=== PATIENT | female | born 1965 | race Caucasian/White ===

== ENCOUNTER → 2023-08-21 08:48 | Outpatient (REF) | payer BC, SELFPAY | LOC: WDC 08:48 | PROVIDERS: ATTENDING PHYSICIAN Obstetrics & Gynecology Gynecology; FAMILY PHYSICIAN Family Medicine | DX: Z12.31 Encounter for screening mammogram for malignant neoplasm of breast (principal) | CPT/HCPCS: 77063; 77067 ==

== ENCOUNTER 2024-02-13 14:33 | Emergency (ER) | payer BC, SELFPAY ==
--- NOTE | 2024-02-13 14:41 | ED.GENMED ---
ED Provider Triage
<Rose Mitchell PA-C - Last Filed: 02/13/24 14:45>
-
Patient seen by provider in Triage?: Seen in Triage
Attestation: A medical screening examination has been initiated by a qualified medical provider. Based on the assessment performed at this time, it has been determined that an emergent medical condition may exist and the patient has been informed
that further medical evaluation and possible additional diagnostic testing may be needed.
HPI: 58yoF here with chest discomfort and palpitations. Started 1 week ago and woke her up from sleep. Reports tightness in center of chest which radiated to jaw. Jaw discomfort subsided but continues to have chest fluttering. Seen by PCP today and
EKG was 'a little weird' so she was sent to the ED.
GENERAL: Alert , in no apparent distress
EYE: No visual abnormalities.
NECK: Trachea midline
ENT: No visible abnormalities.
LUNGS: No acute respiratory distress
NEUROLOGICAL: Alert and oriented
SKIN: Skin intact. No visible changes.
MUSCULOSKELETAL: Moving extremities normally
PSYCH: Normal and appropriate interaction.
This is a medical evaluation conducted in person to initiate diagnostic evaluation and provide initial therapeutics. Please see further documentation by the treating clinician.
Cardiac labs, EKG, and CXR ordered.
History of Present Illness
<Rose Mitchell PA-C - Last Filed: 02/13/24 14:45>
General
Chief Complaint: Chest Pain
Time Seen by Provider: 02/13/24 16:57
<Jaison Morataya DO - Last Filed: 02/13/24 17:34>
History of Present Illness
History of Present Illness:
TIME OF INITIAL ENCOUNTER: 5 PM
HPI: About a week ago, the patient woke up with chest discomfort. This been ongoing for the past week but is overall improving. She has no exertional symptoms. This is also associated with a heart fluttering sensation. She went to see her
primary care doctor who thought the EKG was a little bit changed so she was sent here for further evaluation. She saw Dr. Summres about 20 years ago.
EXAM:
GENERAL: Well appearing in no distress
HEENT: Moist oral mucosa
CARDIOVASCULAR: No murmurs, normal heart rate, regular rhythm, No chest wall tenderness
PULMONARY: No respiratory distress, breath sounds are clear and equal
ABDOMEN: Soft with no peritoneal signs, no tenderness
NEUROLOGIC: Excellent strength all extremities, no coordination deficits
PSYCHIATRIC: Appropriate mental status, normal insight and judgement
EXTREMITIES: Nontender, no edema, moves all extremities equally
SKIN: No rash, no lesions
NUMBER AND COMPLEXITY OF PROBLEMS ADDRESSED AT THE ENCOUNTER
� Chronic conditions affecting care: No significant past medical history, has had a ureteral stone in the past
� Acute Exacerbation and/or Progression of Chronic Illness: This is an acute problem
� Differential Diagnosis includes: Stress/anxiety, chest wall pain, ACS less likely
AMOUNT AND/OR COMPLEXITY OF DATA TO BE REVIEWED AND ANALYZED
� I performed an independent evaluation of and my interpretation is:
EKG: Sinus 78, left axis deviation, nonspecific ST abnormality with overall improved T wave abnormality on EKG from 2019
CT:
X-rays: Chest x-ray unremarkable other than tortuosity of aorta
Laboratory Studies: CBC, chemistries, and troponin unremarkable
Other:
� Review of other/old records: I reviewed records, the patient had a colonoscopy in July 2022
� Clinical information was obtained by an independent historian: I spoke to family at bedside
� Prescriptions/Medications Considered but not given:
� Further testing considered but not performed: Consider repeat troponin however the symptoms have been ongoing for the past week and are not worsening
RISK OF COMPLICATIONS AND/OR MORBIDITY OR MORTALITY OF PATIENT MANAGEMENT
� Social determinants of health affecting care: Lives at home
� Discussion with other providers: Notified Dr. Lux as patient really wants to see Dr. Summers again�agrees with outpatient follow-up.
� Escalation of care including admission/observation vs risk of discharge considered: The patient has been having chest discomfort and palpitations for the past week. Overall her symptoms have somewhat improved and currently
does not have any palpitations. She currently does not have any chest pain but reports a little bit of left arm discomfort.
ANY OTHER UPDATES:
5:30 PM: I reassessed patient. Workup unremarkable�to follow-up with cardiology as an outpatient. She remained sinus on the monitor with no ectopy.
Past History
<Rose Mitchell PA-C - Last Filed: 02/13/24 14:45>
Past History
ED Past Medical History: None
ED Past Surgical History: Gynecological (Hysterectomy)
Social History
Tobacco: Non-smoker
Alcohol: Occasional
Personal:
Living: with family
Family History
Family History: Negative Early CAD
Phy Exam
<Jaison Morataya DO - Last Filed: 02/13/24 17:34>
Physical Exam
Physical Exam:
See HPI
Scores
<Jaison Morataya DO - Last Filed: 02/13/24 17:34>
Heart Score for Chest Pain Patients
STEMI patient?: Not applicable
Course
<Rose Mitchell PA-C - Last Filed: 02/13/24 14:45>
Orders/Labs/Results
Orders:
Orders
02/13/24 14:34
Electrocardiogram (*1) Urgent
Reason for Study: Chest Pain
EKG- Treatment ONCE
02/13/24 14:44
CR Chest - 2 Views Urgent
Comment:
Reason For Exam: CP
02/13/24 14:49
Complete Blood Count/With Diff Urgent
Comprehensive Metabolic Panel Urgent
Troponin I Urgent
Abnormal Lab Results
02/13/24
14:49
MCH 32.2 H pg
(27.0-31.0)
MPV 10.6 H fL
(7.4-10.4)
02/13/24 14:49
02/13/24 14:49
Vital Signs
Initial and Last Documented VS:
Initial Vital Signs
Temp Pulse Resp BP Pulse Ox
36.8 C 84 16 158/99 98
02/13/24 14:43 02/13/24 14:43 02/13/24 14:43 02/13/24 14:43 02/13/24 14:43
Last Documented Vital Signs
Temp Pulse Resp BP Pulse Ox
36.8 C 84 16 158/99 98
02/13/24 14:43 02/13/24 14:43 02/13/24 14:43 02/13/24 14:43 02/13/24 14:43
<Jaison Morataya, DO - Last Filed: 02/13/24 17:34>
Orders/Labs/Results
Orders:
Orders
02/13/24 14:34
Electrocardiogram (*1) Urgent
Reason for Study: Chest Pain
EKG- Treatment ONCE
02/13/24 14:44
CR Chest - 2 Views Urgent
Comment:
Reason For Exam: CP
02/13/24 14:49
Complete Blood Count/With Diff Urgent
Comprehensive Metabolic Panel Urgent
Troponin I Urgent
Abnormal Lab Results
02/13/24
14:49
MCH 32.2 H pg
(27.0-31.0)
MPV 10.6 H fL
(7.4-10.4)
02/13/24 14:49
02/13/24 14:49
Vital Signs
Initial and Last Documented VS:
Initial Vital Signs
Temp Pulse Resp BP Pulse Ox
36.8 C 84 16 158/99 98
02/13/24 14:43 02/13/24 14:43 02/13/24 14:43 02/13/24 14:43 02/13/24 14:43
Last Documented Vital Signs
Temp Pulse Resp BP Pulse Ox
36.8 C 84 16 158/99 98
02/13/24 14:43 02/13/24 14:43 02/13/24 14:43 02/13/24 14:43 02/13/24 14:43
<Jaison Morataya DO - Last Filed: 02/13/24 17:34>
*Critical Care Note
Total Time (30-74mins, 75-104mins- exclusive of procedures): Not Applicable
ED Attending Note
<Rose Mitchell PA-C - Last Filed: 02/13/24 14:45>
-
Portions of this chart may have been created with voice recognition software.� Occasional wrong word or��sound alike� substitutions may have occurred due to the inherent limitations of voice recognition software.
Discharge Plan
Departure
Patient Disposition: Home (Routine Discharge)
Date of Disposition: 02/13/24
Time of Disposition: 17:30
Patient with high blood pressure during this ER visit?: Yes
Discharge Problem:
Chest pain
Instructions: Chest Pain [facility] Follow Up
Referrals:
Noelle Summers MD [Active] - Follow up in 2-3 days
Activity Restrictions/Additional Instructions:
Unclear etiology of your symptoms. I notified Dr. Lux of your visit�follow-up with Dr. Summers as an outpatient. Return here if worse or other concerns. Basic blood work including cardiac blood work is normal.
Interventions
Interventions:
*Risk Screen - Suicide Last Done: 02/13/24 14:43
*Neglect/Abuse Screening Last Done: 02/13/24 14:43
Discharge Date and Time
Print Language: ALBAN[place]
[2024-02-13 14:43] VITALS: BP 158/99
[2024-02-13 15:08] LABS: % Basophils 0.7 % (0-2); % Eosinophils 1.1 % (0-6); % Immature Granulocytes 0.4 % (0-0.5); % Lymphocytes 34.1 % (20.5-51.1); % Neutrophils 57.7 % (42.2-75.2); Absolute Eosinophils 0.1 10^3/uL (0-0.7); Absolute Lymphocytes 1.9 10^3/uL (1.2-3.4); Absolute Monocytes 0.3 10^3/uL (0.1-0.6); Absolute Neutrophils 3.3 10^3/uL (1.4-6.5); Hemoglobin 14.4 g/dL (12.0-16.0); Mean Corp Hgb Conc. 34.3 g/dL (33.0-37.0); Mean Corpuscular Hgb 32.2 pg (27.0-31.0); Mean Platelet Volume 10.6 fL (7.4-10.4); Nucleated Red Blood Cells % 0 %; Platelet Count 204 10^3/uL (130-400); Red Blood Cell Count 4.47 10^6/uL (4.20-5.40); Red Cell Dist. Width 12.8 % (11.5-14.5); White Blood Cell Count 5.7 10^3/uL (4.8-10.8)
[2024-02-13 15:21] LABS: ALT (SGPT) 29 U/L (0-35); AST (SGOT) 30 U/L (14-36); Albumin 4.8 g/dl (3.5-5.0); Alkaline Phosphatase 92 U/L (38-126); Blood Urea Nitrogen 16 mg/dl (7-17); Calcium 9.3 mg/dl (8.4-10.2); Carbon Dioxide 26 mmol/L (22-30); Chloride 104 mmol/L (98-107); Glucose 98 mg/dl (70-99); Potassium 4.2 mmol/L (3.5-5.1); Sodium 139 mmol/L (135-145); Total Protein 7.6 g/dl (6.3-8.2); eGFR > 60.00
[2024-02-13 15:32] LABS: Troponin I < 0.012 ng/ml
[2024-02-13 17:51] VITALS: BP 153/89
== END 2024-02-13 17:52 | disposition home or self-care (01) ==
LOC: EMR 14:33
PROVIDERS: Physician Assistant; EMERGENCY PHYSICIAN Emergency Medicine; FAMILY PHYSICIAN Family Medicine
DX: R07.89 Other chest pain (principal); R00.2 Palpitations; I49.8 Other specified cardiac arrhythmias; M79.602 Pain in left arm; R03.0 Elevated blood-pressure reading, without diagnosis of hypertension
CPT/HCPCS: 99283; 71046; 80053; 84484; 85025; 93005

== ENCOUNTER → 2024-03-12 14:02 | Outpatient (REF) | payer BC, SELFPAY | LOC: RCS 14:02 | PROVIDERS: ATTENDING PHYSICIAN Internal Medicine Cardiovascular Disease; FAMILY PHYSICIAN Family Medicine | DX: R07.2 Precordial pain (principal); R94.31 Abnormal electrocardiogram [ECG] [EKG] | CPT/HCPCS: 93017; 93350 ==

== ENCOUNTER → 2024-06-17 09:56 | Outpatient (REF) | payer BC, SELFPAY | LOC: RAD 09:56 | PROVIDERS: ATTENDING PHYSICIAN Internal Medicine Cardiovascular Disease; FAMILY PHYSICIAN Family Medicine | DX: R07.9 Chest pain, unspecified (principal); R00.2 Palpitations | CPT/HCPCS: 75574; Q9967 ==

== ENCOUNTER → 2024-07-24 11:51 | Outpatient (REF) | payer BC, SELFPAY | LOC: DHSLP 11:51 | PROVIDERS: ATTENDING PHYSICIAN Internal Medicine Critical Care Medicine; FAMILY PHYSICIAN Orthopaedic Surgery | DX: G47.33 Obstructive sleep apnea (adult) (pediatric) (principal) | CPT/HCPCS: 95800 ==

== ENCOUNTER 2024-07-30 06:27 | Day surgery (SDC) | payer BC, SELFPAY | END 2024-07-30 11:34 | disposition home or self-care (01) | LOC: GI 06:27 | PROVIDERS: ATTENDING PHYSICIAN Student in an Organized Health Care Education/Training Program | DX: R12 Heartburn (principal); R07.89 Other chest pain; K44.9 Diaphragmatic hernia without obstruction or gangrene; K31.7 Polyp of stomach and duodenum; K22.89 Other specified disease of esophagus; R07.9 Chest pain, unspecified; K29.50 Unspecified chronic gastritis without bleeding; K20.90 Esophagitis, unspecified without bleeding | CPT/HCPCS: 43239; 88305; 88342 ==

== ENCOUNTER → 2024-09-06 13:40 | Outpatient (REF) | payer BC, SELFPAY | LOC: WDC 13:40 | PROVIDERS: ATTENDING PHYSICIAN Obstetrics & Gynecology Gynecology; FAMILY PHYSICIAN Family Medicine | DX: Z12.31 Encounter for screening mammogram for malignant neoplasm of breast (principal) | CPT/HCPCS: 77063; 77067 ==

== ENCOUNTER → 2024-11-28 09:19 | Outpatient (REF) | payer BC, SELFPAY | LOC: HWRAD 09:19 | PROVIDERS: ATTENDING PHYSICIAN Student in an Organized Health Care Education/Training Program; FAMILY PHYSICIAN Family Medicine; REFERRING PHYSICIAN Internal Medicine Cardiovascular Disease | DX: R10.13 Epigastric pain (principal) | CPT/HCPCS: 76700 ==